=== PATIENT | female | born 1955 | race Caucasian/White ===

== ENCOUNTER 2022-06-15 10:24 | Emergency (ER) | payer OTHER ==
[~2022-06-15] VITALS: Ht 160 cm; Wt 54.0 kg
[2022-06-15 10:43] VITALS: BP 134/71
[2022-06-15] MEDS ORDERED: KETOROLAC 30 MG/ML VIAL IM ONE (11:10)
[2022-06-15] MEDS ORDERED: IBUP-2213 PO (13:14)
[2022-06-15] MEDS ORDERED: KETOROLAC 30 MG/ML VIAL ONE (14:47)
[2022-06-15 14:58] VITALS: BP 116/62
== END 2022-06-15 14:58 | disposition home or self-care (01) ==
LOC: MED 10:24
DX: S93.401A Sprain of unspecified ligament of right ankle, initial encounter (principal); S93.601A Unspecified sprain of right foot, initial encounter; S80.02XA Contusion of left knee, initial encounter; E11.9 Type 2 diabetes mellitus without complications; W18.39XA Other fall on same level, initial encounter; Y93.01 Activity, walking, marching and hiking; Y92.89 Other specified places as the place of occurrence of the external cause; Y99.8 Other external cause status
CPT/HCPCS: 73562; 73610; 73630; 96372; 99284; J1885

== ENCOUNTER 2022-08-14 09:22 | Day surgery (SDC) | payer OTHER ==
[~2022-08-14] VITALS: Ht 157.5 cm; Wt 59.0 kg
[~2022-08-14 09:22] MED LIST: IBUP-2213 PO
[2022-08-14] MEDS ORDERED: LIDOCAINE 2% 100 MG/5 ML UJET TP ONE (10:28)
[2022-08-14] MEDS ORDERED: fentaNYL citrate 0.05 MG/ML VIAL ONE (10:28)
[2022-08-14] MEDS ORDERED: fentaNYL citrate 0.05 MG/ML VIAL IVP ONE (12:15)
== END 2022-08-14 13:05 | disposition home or self-care (01) ==
LOC: MDS 09:22 → MMU 09:27 → MDS 13:05
PROVIDERS: ATTEND Internal Medicine Gastroenterology
DX: Z12.11 Encounter for screening for malignant neoplasm of colon (principal); K57.30 Diverticulosis of large intestine without perforation or abscess without bleeding; I10 Essential (primary) hypertension; E78.00 Pure hypercholesterolemia, unspecified; E11.9 Type 2 diabetes mellitus without complications; Z79.4 Long term (current) use of insulin
CPT/HCPCS: 45378; J3010